=== PATIENT | female | born 1960 | race Caucasian/White ===

== ENCOUNTER → 2018-02-09 | Outpatient (CLI) | payer MEDICARE, BC ==
--- NOTE | 2018-02-09 10:52 | CTL ---
EXAMINATION TYPE: CT Low Dose Lung DATE OF EXAM ORDERED: 02/09/2018 HISTORY: Tobacco abuse. Lung cancer screening CT DLP: [address] CTDI: 2.22 mGy Automated exposure control for dose reduction was used. SCREENING VISIT: First COMPARISON: None TECHNIQUE: Low dose computed tomography scan was performed through the chest at 1 mm thick sections a nd reconstructed images in the coronal plane at [address] DIAGNOSTIC QUALITY: Satisfactory FINDINGS: LUNG NODULES: There is a 1 to 2 mm solid pulmonary nodule peripherally within the right lower lobe on series 5 imag e 192. Within the right upper lobe anteriorly there is ar 4 mm subsolid pulmonary nodule on series 5 image 8 5. Within the left upper lobe there is a 3 mm solid pulmonary nodule on series 5 image 171 and series 7 image 244. LUNGS: COPD: Severity: Mild paraseptal Fibrosis: Severity: None Lymph nodes: None Other findings: Biapical pleural parenchymal scarring is mild. RIGHT PLEURAL SPACE: Effusion: None Calcification: None Thickening: None Pneumothorax: None LEFT PLEURAL SPACE: Effusion: None Calcification: None Thickening: None Pneumothorax: None HEART: Heart Size: Nonenlarged Coronary calcification: Mild Pericardial effusion: None OTHER FINDINGS: Upper abdomen: Unenhanced limited images of the upper abdomen are grossly unremarkable. Bony thorax: Intact and unremarkable Supraclavicular region: No adenopathy IMPRESSION: Bilateral sub-4 mm pulmonary nodules correspond to a BI-RADS 2-benign appearance or behav ior-nodules with a very low likelihood of becoming a clinically active cancer due to size although co ntinued annual screening with low dose CT in 12 months is recommended to ensure stability. FOLLOW UP CT CHEST RECOMMENDATION: Continued annual screening with low dose chest CT in [address] LUNG RAD: Lung-Rad 2 Benign Appearance or Behavior
== END | disposition home or self-care (01) ==
LOC: RADCTMAIN 09:08
PROVIDERS: ATTEND Family Medicine
DX: R91.1 Solitary pulmonary nodule (principal); Z87.891 Personal history of nicotine dependence

== ENCOUNTER → 2018-04-21 | Outpatient (CLI) | payer MEDICARE, BC ==
--- NOTE | 2018-04-24 09:26 | MM ---
Reason for exam: screening (asymptomatic). Last mammogram was performed 2 years and 10 months ago. History: Patient is postmenopausal. Physical Findings: A clinical breast exam by your physician is recommended on an annual basis and results should be correlated with mammographic findings. MG Screening Mammo w CAD Bilateral CC and MLO view(s) were taken. Prior study comparison: June 17, 2015, bilateral MG screening mammo w CAD. September 25, 2013, bilateral digital screening mammo w/CAD. There are scattered fibroglandular densities. There is no discrete abnormality. ASSESSMENT: Negative, BI-RAD 1 RECOMMENDATION: Routine screening mammogram of both breasts in 1 year.
== END | disposition home or self-care (01) ==
LOC: RADMAMWWP 10:59
PROVIDERS: ATTEND Family Medicine
DX: Z12.31 Encounter for screening mammogram for malignant neoplasm of breast (principal)
CPT/HCPCS: 77067

== ENCOUNTER → 2018-08-03 | Outpatient (CLI) | payer MEDICARE, BC ==
--- NOTE | 2018-08-03 11:33 | US ---
EXAMINATION TYPE: US abdomen complete DATE OF EXAM: 08/03/2018 COMPARISON: NONE CLINICAL HISTORY: 58-year-old female R10.11 RUQ PAIN. IBS, bowel surgery part of bowel removed years ago TECHNIQUE: Multiple sonographic images of the abdomen are obtained. FINDINGS: EXAM MEASUREMENTS: Liver Length: 14.4 cm Gallbladder Wall: 0.1 cm CBD: 0.3 cm Spleen: 7.9 cm Right Kidney: 10.2 x 4.3 x 3.9 cm Left Kidney: 10.0 x 4.7 x 4.3 cm Pancreas: Tail obscured by overlying bowel gas Liver: wnl Gallbladder: wnl Evidence for sonographic Rosas's sign: No CBD: wnl Spleen: wnl Right Kidney: wnl Left Kidney: No hydronephrosis. There is a tiny cortical cyst medial upper pole measuring 0.7 x 1.0 x 0.9 cm Upper IVC: wnl Abd Aorta: wnl IMPRESSION: Suboptimal visualization of the pancreatic tail. Also, tiny benign 1 cm cortical cyst in the left kid maria ines. Otherwise, unremarkable sonographic examination of the abdomen.
== END | disposition home or self-care (01) ==
LOC: RADUSWWP 10:13
PROVIDERS: ATTEND Family Medicine
DX: N28.1 Cyst of kidney, acquired (principal)
CPT/HCPCS: 76700

== ENCOUNTER → 2021-01-27 | Outpatient (CLI) | payer MEDICARE, BC ==
--- NOTE | 2021-01-27 09:39 | CTL ---
EXAMINATION TYPE: CT Low Dose Lung DATE OF EXAM ORDERED: 01/27/2021 HISTORY: Long-term tobacco use. Lung cancer screening CT DLP: [address] CTDI: 1.95 mGy Automated exposure control for dose reduction was used. SCREENING VISIT: First study after baseline COMPARISON: Prior study February 09, 2018 TECHNIQUE: Low dose computed tomography scan was performed through the chest at 1 mm thick sections a nd reconstructed images in the coronal plane at [address] DIAGNOSTIC QUALITY: Satisfactory FINDINGS: LUNG NODULES: Present, detailed below: Stable 5 x 5 mm round glass nodule anterior right upper lung image 64. Stable 4 mm nodule anterolateral left mid lung axial image 159. No new or enlarging greater than 5 mm pulmonary nodules. LUNGS: COPD: Severity: Mild Fibrosis: Severity: Mild Lymph nodes: None Other findings: Small posterior lateral right-sided Bochdalek hernia coronal image 40 series 8 stable . RIGHT PLEURAL SPACE: Effusion: None Calcification: None Thickening: None Pneumothorax: None LEFT PLEURAL SPACE: Effusion: None Calcification: None Thickening: None Pneumothorax: None HEART: Heart Size: Normal Coronary calcification: Mild Pericardial effusion: None OTHER FINDINGS: Upper abdomen: None Bony thorax: None Supraclavicular region: None Other: None IMPRESSION: No suspicious new or enlarging nodules. CT LUNG RAD AND CT CHEST RECOMMENDATION: Lung-Rad 2 Benign Appearance or Behavior: Continue annual sc reening with LDCT in 12 months. S Modifier (other clinically significant findings): None
== END | disposition home or self-care (01) ==
LOC: RADCTMAIN 07:23
PROVIDERS: ATTEND Family Medicine
DX: Z12.2 Encounter for screening for malignant neoplasm of respiratory organs (principal); Z72.0 Tobacco use
CPT/HCPCS: 71271

== ENCOUNTER → 2021-03-12 | Outpatient (CLI) | payer MEDICARE, BC ==
--- NOTE | 2021-03-12 12:41 | US ---
EXAMINATION TYPE: US abdomen complete DATE OF EXAM: 03/12/2021 COMPARISON: US August 03, 2018, CT LUNG CLINICAL HISTORY: R10.11 right upper quad pain. Patient has RUQ/ Right lateral rib pain with flare up of Lyme Disease and Fibromyalgia; takes meds for Fibromyalgia and thyroid; patient stated also has B ochdalek Hernia (right sided) with future potential surgery; multiple abdominal surgeries per patient . EXAM MEASUREMENTS: Liver Length: 15.8 cm Gallbladder Wall: 0.2 cm CBD: 0.2 cm Spleen: 8.1 cm Right Kidney: 9.9 x 5.0 x 3.8 cm Left Kidney: 9.2 x 5.0 x 5.5 cm Pancreas: Predominantly obscured by overlying bowel gas Liver: hyperechoic to right renal cortex and attenuated posteriorly suggests fatty liver Gallbladder: wnl Evidence for sonographic Rosas's sign: no CBD: wnl Spleen: wnl Right Kidney: No hydronephrosis or masses seen Left Kidney: No hydronephrosis or masses seen Upper IVC: wnl Abd Aorta: increased size proximal aorta = 2.7cm Transverse with intimal wall thickening seen especi ally proximally and distally aorta, and into bilateral BENNY. ISoechoic, triangular area is seen superior to right diaphragm at level of lung noted on images #37, 39, 40, 41, etc. Suboptimal evaluation of pancreas on initial images saved. No greater than 3.0 cm AAA. Ectasia is pre sent. Visualized liver remains heterogeneously hyperechoic without mass or ductal dilatation. No new ascites. Gallbladder shows no intraluminal gallstones. No concerning renal masses or hydronephrosis. Technologists and minimal study identifies defect and diaphragm are fat-containing Bochdalek hernia p osterior aspect of the right lower thorax correlating with CT. IMPRESSION: Confirmation of known Bochdalek hernia. No acute findings identified.
== END | disposition home or self-care (01) ==
LOC: RADUSWWP 08:29
PROVIDERS: ATTEND Family Medicine
DX: Q79.0 Congenital diaphragmatic hernia (principal)
CPT/HCPCS: 76700

== ENCOUNTER → 2021-07-29 | Outpatient (CLI) | payer MEDICARE, BC ==
--- NOTE | 2021-07-30 13:52 | MM ---
Reason for exam: screening (asymptomatic). Last mammogram was performed 3 years and 3 months ago. History: Patient is postmenopausal. Physical Findings: A clinical breast exam by your physician is recommended on an annual basis and results should be correlated with mammographic findings. MG 3D Screening Mammo W/Cad Bilateral CC and MLO view(s) were taken. Prior study comparison: April 21, 2018, bilateral MG screening mammo w CAD. June 17, 2015, bilateral MG screening mammo w CAD. The breast tissue is heterogeneously dense. This may lower the sensitivity of mammography. Stable benign calcifications. There is no discrete abnormality. No significant changes when compared with prior studies. ASSESSMENT: Benign, BI-RAD 2 RECOMMENDATION: Routine screening mammogram of both breasts in 1 year.
== END | disposition home or self-care (01) ==
LOC: RADMAMWWP 13:39
PROVIDERS: ATTEND Family Medicine
DX: Z12.31 Encounter for screening mammogram for malignant neoplasm of breast (principal); Z78.0 Asymptomatic menopausal state
CPT/HCPCS: 77063; 77067

== ENCOUNTER → 2022-01-29 | Outpatient (CLI) | payer MEDICARE, BC ==
--- NOTE | 2022-01-29 10:53 | CT ---
EXAMINATION TYPE: CT chest wo con DATE OF EXAM: 01/29/2022 COMPARISON: Low-dose lung screening CT January 27, 2021 HISTORY: Bochdalek diaphragmatic hernia. CT DLP: 178.7 mGycm. Automated Exposure Control for Dose Reduction was Utilized. TECHNIQUE: CT scan of the thorax is performed without IV contrast. FINDINGS: LUNGS: Mild underlying emphysematous change is redemonstrated. Stable fat-containing diaphragmatic he rnia right lung posteriorly sagittal image 37 for reference. No suspicious new greater than 5 mm pulm onary nodules or masses. Stable 5 mm groundglass nodule anterior right upper lobe axial image 19. Sta ble 4 mm left midlung nodule anteriorly axial image 36. No pleural effusion or pneumothorax seen bila terally. MEDIASTINUM: Lack of IV contrast is noted to limit evaluation for mediastinal and especially hilar ad enopathy. There are no definitive greater than 1 cm mediastinal lymph nodes. No cardiomegaly or per icardial effusion is seen. At least mild three-vessel coronary artery calcification. Ascending aorta measures up to 3.9 cm in diameter axial image 31. Thyroid gland small in size or atrophic. OTHER: Visualized liver heterogeneously hypodense consistent with diffuse fatty infiltration. IMPRESSION: Redemonstration of known Bochdalek type hernia.
== END | disposition home or self-care (01) ==
LOC: RADCTMAIN 10:21
PROVIDERS: ATTEND Thoracic Surgery (Cardiothoracic Vascular Surgery)
DX: Q79.0 Congenital diaphragmatic hernia (principal)
CPT/HCPCS: 71250

== ENCOUNTER → 2022-02-18 | Outpatient (CLI) | payer MEDICARE, BC ==
[2022-02-18 11:45] VITALS: BP 109/80; PULSE 84; RESP 18; TEMP 98.4
--- NOTE | 2022-02-18 12:06 | P.CON ---
Consult Note - . Consult date: 02/18/22 Assessment/Plan:: HISTORY OF PRESENT ILLNESS: 61 yr old female with at side as a referral from Dr Dale presents today with R sided neck pain secondary to DDD, retrolisthesis, neuroforaminal stenoses and facet arthropathy for evaluation. Patient states neck pain is localized to the right aspect of the cervical spine, 7 out of 10 in intensity, dull, achy with sharp shooting pain to the right shoulder. Pain is provoked with rotation, lateral flexion and extension of the neck. Pain is relieved with medications, topicals, alternating ice and heat, physical therapy of which she was told not to continue by 2 physicians as it would cause more damage, home-based stretching regimen every evening, use of a soft c-collar in the evening, massage therapy and 2019, repositioning and rest. PMH: Hypothyroidism PSH: Abd surgery, Wrist surgery, Foot surgery SH: Tobacco user, no ETOH abuse, no illicit drug use. and lives with spouse FH: Non contributory All: See list Meds: see list REVIEW OF ORGAN SYSTEMS: CONSTITUTIONAL: No fevers or chills. No recent weight loss. HEENT: No visual acuity loss, eye pain, difficulties with hearing. No nosebleeds. No difficulty swallowing. RESPIRATORY: Denies any troubles with breathing or dyspnea on exertion. CARDIOVASCULAR: Denies any chest pain, palpitations, or recent heart attacks. GASTROINTESTINAL: Denies fatty food intolerance. Has change in bowel habits and gas bloat. GENITOURINARY: Denies any blood in urine. Has increased urinary frequency. NEUROLOGICAL: + numbness and tingling along the distal extremities. No seizure disorders or headaches. MUSCULOSKELETAL: + back pain SKIN: No skin cancer. No rash. PSYCHIATRIC: Denies current depression or suicidal thoughts. ENDOCRINE: Denies current thyroid disorders. Denies any blood sugar glucose intolerance. HEME/LYMPHATIC: Denies any lumps and bumps around the neck. History of deep venous thrombosis. ALLERGY/IMMUNOLOGY: No immunoglobulin therapy. No immune deficiencies. BREAST: Denies current breast lumps, pain or nipple discharge. Physical Examinations : Constitutional : Cooperative , not in acute distress . HEENT: Neck supple. No Lymphadenopathy. Normal thyroid size . Eyes no ptosis , no icterus, no photophobia . Hearing intact. Normal oropharynx. No Thrush. Respiratory : Chest clear to auscultations bilaterally. No wheezing. No rhonchi. Cardiovascular : Regular rate and rhythm , S1 / S2. No S3 . No S4. Gastrointestinal : Abdomen soft. No tenderness. Bowel sounds x 4. No organomegaly . Genitourinary : Deferred. Neurologic : Cranial nerve II to XII intact. No focal neurological deficits. Psychiatric : alert & oriented x 3. Matching mood & appropriate affect. Judgment & insight intact. Lymphatic No Lymphadenopathy. Musculoskeletal : Cervical Spine Motor strength in the deltoid and biceps: Normal right side. Normal Left side Motor strength biceps and the wrist extensors: Normal right side . Normal left side Motor strength in the triceps muscle: Normal right side. Normal left side Deep tendon reflexes: Normal at the biceps. Normal at Brachioradialis. Normal at triceps Cervical facet loading test: positive bilaterally Spurling test: positive bilaterally Neck distraction test: positive bilaterally Cash sign: positive bilaterally Lumbar spine Motor strength lower extremities ,thigh and legs 5/5 Right side , 5/5 Left side Deep tendon reflexes : Normal Knee Jerk. Normal Ankle Jerk Vertebral body tenderness over Lumbar facet Loading Test: positive Right / positive Left Range of motion of the lumbar spine Flexion 30 degrees, extension 10 degrees Straight Leg Raise test: Left/ Right positive at degree Johny test: positive right / positive left. Severe tenderness over the Sacroiliac joint on the Right / Left sides Gaenslen test: positive bilaterally Seated flexion test: positive bilate rally. Imaging: MRI of the cervical spine without contrast from 01/05/22 reviewed Assessment/ Plan : Recommendation of BETI C5-C6. May need a series of injections, upper trapezius and a 6 month period, to obtain optimal pain relief. Risks, benefits of procedure discussed and patient verbalized understanding. Denies aspirin or anti- coagulant use. Denies medical history of diabetes. All questions answered. I have spent greater than 50 minutes on patient care today. Dr Braxton was available by phone for the evaluation of this patient. The time was used to review the medical records including relevant urine studies and Prescription history (MAPs), review of the available imaging, evaluation and examination of the patient, coordination of care with the medical staff and if applicable refer ring physicians, as well as creation of the medical record PQRS Measure Charge Sheet Mode of Arrival: Ambulatory - Pain Location Neck Non-Pharmacological Interventions: Heat, Home Exercise, Ice, Inactivity, Massage, Position/Reposition, Stretching Pharmacological Interventions: PRN Medication, Scheduled Medication, Topical Medication PQRS Narrative: Smoking Status Current every day smoker Blood Pressure 109/80 Pain Intensity [Neck] 7 Scale Used Numeric (1 - 10) Home Medications: Ambulatory Orders Levothyroxine Sodium [Synthroid] 150 mcg PO DAILY 11/03/15 carisoprodoL [Soma] 350 mg PO TID PRN 11/03/15 oxyCODONE ER [OxyCONTIN 15MG E.R] 15 mg PO Q12HR PRN 11/03/15 traZODone HCL [Desyrel] 100 mg PO DAILY 11/03/15
== END ==
LOC: PNWHC3 11:10
PROVIDERS: ATTEND Specialist
DX: M50.30 Other cervical disc degeneration, unspecified cervical region (principal); M48.02 Spinal stenosis, cervical region; M47.812 Spondylosis without myelopathy or radiculopathy, cervical region; E03.9 Hypothyroidism, unspecified; F17.200 Nicotine dependence, unspecified, uncomplicated; Z88.0 Allergy status to penicillin; Z91.040 Latex allergy status; Z88.9 Allergy status to unspecified drugs, medicaments and biological substances
CPT/HCPCS: 99211

== ENCOUNTER → 2024-02-10 | Outpatient (CLI) | payer MEDICARE, OTHER ==
--- NOTE | 2024-02-10 12:48 | CTL ---
EXAMINATION TYPE: CT Low Dose Lung DATE OF EXAM ORDERED: 02/10/2024 HISTORY: Nicotine dependence. Lung cancer screening CT DLP: [address] CTDI: 1.8 mGy Automated exposure control for dose reduction was used. SCREENING VISIT: Subsequent COMPARISON: 01/29/2022 TECHNIQUE: Low dose computed tomography scan was performed through the chest at 1 mm thick sections a nd reconstructed images in the coronal plane at [address] DIAGNOSTIC QUALITY: Limited, but interpretable FINDINGS: LUNG NODULES: None. LUNGS: COPD: Severity: None Fibrosis: Severity: None Lymph nodes: None Other findings: None RIGHT PLEURAL SPACE: Effusion: None Calcification: None Thickening: None Pneumothorax: None LEFT PLEURAL SPACE: Effusion: None Calcification: None Thickening: None Pneumothorax: None HEART: Heart Size: Normal Coronary calcification: Mild Pericardial effusion: None OTHER FINDINGS: Upper abdomen: Normal Bony thorax: Normal Supraclavicular region: Normal Other: Ascending thoracic aorta at the level the main pulmonary artery measures 4.1 cm. The main pul monary artery at the bifurcation measures 3.1 cm. IMPRESSION: 1. Ascending thoracic aortic aneurysm of 4.1 cm. 2. No suspicious changes for primary or metastatic neoplasm. FOLLOW UP CT CHEST RECOMMENDATION: Follow-up low-dose CT chest one year. CT LUNG RAD: Lung-Rad 2 Benign Appearance or Behavior
== END | disposition home or self-care (01) ==
LOC: RADCTMAIN 11:26
PROVIDERS: ATTEND Family Medicine
DX: Z12.2 Encounter for screening for malignant neoplasm of respiratory organs (principal); I71.21 Aneurysm of the ascending aorta, without rupture; F17.218 Nicotine dependence, cigarettes, with other nicotine-induced disorders; F17.210 Nicotine dependence, cigarettes, uncomplicated
CPT/HCPCS: 71271

== ENCOUNTER 2025-02-27 07:25 | Day surgery (SDC) | payer MEDICARE, OTHER ==
[2025-02-27] MEDS: IV FLUID CONTINUATION 1,000 ML IV ONE (07:43)
[2025-02-27 07:55] VITALS: RESP 16; TEMP 97.2
[2025-02-27] MEDS: LACTATED RINGERS 1,000 ML IV SCH (08:02)
[2025-02-27] MEDS ORDERED: LIDOCAINE 1% INJ 10MG/ML (20 ML MDV) ONE (08:21)
[2025-02-27] MEDS ORDERED: PROPOFOL 10 MG/ML 20 ML VIAL IV ONE (08:21)
--- NOTE | 2025-02-27 08:40 | P.PCN ---
Date of Procedure: 02/27/25 Procedure(s) Performed: Brief history: Patient is a pleasant 64-year-old white female scheduled for an elective upper endoscopy as well as colonoscopy as a part of evaluation of GERD, screening for colon cancer and family history of colon cancer. Her mother was diagnosed with colon cancer at age 80. Procedure performed: Esophagogastroduodenoscopy with biopsy Colonoscopy Preoperative diagnosis: GERD and throat irritation Screening for colon cancer and family history of colon cancer Anesthesia: MAC Procedure: After informed consent was obtained from the patient was brought into the endoscopy unit and IV sedation was administered by anesthesia under continuous monitoring. Initially upper endoscopy was done. The Olympus GF 160 video endoscope was inserted inserted into the mouth and esophagus intubated without any difficulty and was gradually advanced into the stomach and duodenum and carefully examined. The bulb and second part of the duodenum appeared normal. The scope was then withdrawn into the stomach adequately insufflated with air and upon careful examination the antrum and mild gastritis and biopsies were done from this area. Mucosa of the body, cardia and fundus appeared normal. The scope was then withdrawn into the esophagus. Small hiatal hernia noted. The GE junction was located at 40 cm to the incisors. It appeared irregular with 3 mm tongue of Beckman's appearing mucosa just proximal to the GE junction that was biopsied. At this time the patient continued to remain sedation. Initial digital rectal examination was normal. Olympus CF 160 video colonoscope was then inserted into the rectum and gradually advanced to the cecum without any difficulty. Careful examination was performed as the scope was gradually being withdrawn. The prep was excellent. The cecum, ascending colon, transverse colon, descending colon, sigmoid colon and rectum appeared normal. Retroflexion was performed in the rectum and no lesions were noted. Patient tolerated the procedure well. Impression: 1. Upper endoscopy revealed mild gastritis, small hiatal hernia and short segment Beckman's esophagus 2. Colonoscopy revealed scattered sigmoid diverticulosis but no evidence of colorectal neoplasia Recommendations: Findings of this examination were discussed with the patient as well as her family. She was advised to follow-up with the biopsy results. If the biopsy confirms the presence of Beckman's esophagus she can have repeat upper endoscopy in 3 years. In the meantime omeprazole 20 mg daily and follow antireflux measures. Recommended repeat screening colonoscopy in 5 years because of a family history of colon cancer
[2025-02-27 09:04] VITALS: BP 120/79; PULSE 74
== END 2025-02-27 09:19 | disposition home or self-care (01) ==
LOC: ORWHC2ENDO 07:25
PROVIDERS: ATTEND Internal Medicine Gastroenterology
DX: Z12.11 Encounter for screening for malignant neoplasm of colon (principal); K31.9 Disease of stomach and duodenum, unspecified; K21.9 Gastro-esophageal reflux disease without esophagitis; K22.70 Barrett's esophagus without dysplasia; K44.9 Diaphragmatic hernia without obstruction or gangrene; K57.30 Diverticulosis of large intestine without perforation or abscess without bleeding; E03.9 Hypothyroidism, unspecified; M19.90 Unspecified osteoarthritis, unspecified site; M79.7 Fibromyalgia; F41.9 Anxiety disorder, unspecified; F43.10 Post-traumatic stress disorder, unspecified; F32.A Depression, unspecified; F17.210 Nicotine dependence, cigarettes, uncomplicated; Z80.0 Family history of malignant neoplasm of digestive organs; Z88.0 Allergy status to penicillin; Z91.040 Latex allergy status; Z88.6 Allergy status to analgesic agent; Z88.5 Allergy status to narcotic agent; Z88.8 Allergy status to other drugs, medicaments and biological substances; Z79.890 Hormone replacement therapy; Z79.899 Other long term (current) drug therapy
CPT/HCPCS: 88305; 88312; 43239; J2003; J2704; G0105

== ENCOUNTER → 2025-05-21 | Outpatient (CLI) | payer MEDICARE, OTHER ==
--- NOTE | 2025-05-22 15:22 | MR ---
INDICATION: Patient age:Female; 64 years old; Reason for study: M43.22 FUSION OF SPINE, M50.30, M47.22; [facility]. COMPARISON: Outside institution MR cervical spine 01/05/2022. TECHNIQUE: Multi planar, multi sequence imaging was performed of the cervical spine. No Gadolinium wa s given. FINDINGS: Motion degraded examination. Alignment: The cervical vertebral bodies have preserved heights. Grade 1 retrolisthesis of C3 on C4. Bones: Postsurgical changes from anterior cervical fusion involving C4-C7. This creates susceptibilit y artifact which limits evaluation. Bone marrow edema identified within the T1 vertebral body with in creased STIR signal. Cord: The spinal cord is unremarkable with regards to their signal intensity and morphology. Discs: Multilevel disc desiccation is present. C2-C3: Minimal broad based disc bulge. No spinal canal stenosis. Uncovertebral joint hypertrophy. Bi lateral facet arthropathy. Moderate right neural foraminal stenosis. The left neural foramen is paten t. C3-C4: Broad-based disc bulge with mild effacement of the anterior thecal sac. No significant spinal canal stenosis. Bilateral facet arthropathy. Moderate bilateral neuroforaminal stenosis. C4-C5: Postsurgical changes without significant spinal canal stenosis. No significant neuroforaminal stenosis. C5-C6: Postsurgical changes without significant spinal canal stenosis. Uncovertebral joint hypertroph y. Mild bilateral neural foraminal stenosis. C6-C7: Postsurgical changes without significant spinal canal stenosis. Uncovertebral joint hypertrop hy with mild right and moderate left neural foraminal stenosis. C7-T1: Broad-based disc bulge with mild effacement of the anterior thecal sac. No significant spinal canal stenosis. Uncovertebral joint hypertrophy. Moderate bilateral neuroforaminal stenosis. T1-T2: Broad-based disc bulge with mild effacement of the anterior thecal sac. No significant spinal canal stenosis. Mild bilateral neural foraminal stenosis. Other: None. IMPRESSION: 1. Postsurgical changes from ACDF C4-C7. Hardware appears intact. 2. Multilevel disc degeneration with associated osteoarthritic changes as described above. No definit ayah disc herniation or significant spinal canal stenosis. [facility], , 05/22/2025 3:20 PM
== END | disposition home or self-care (01) ==
LOC: RADMRIMAIN 16:24
PROVIDERS: ATTEND Family Medicine
DX: M50.10 Cervical disc disorder with radiculopathy, unspecified cervical region (principal); M43.22 Fusion of spine, cervical region; M47.22 Other spondylosis with radiculopathy, cervical region
CPT/HCPCS: 72141